=== PATIENT | female | born 1975 | race Caucasian/White ===

== ENCOUNTER 2016-07-06 13:02 | Emergency (ER) | payer SELFPAY ==
[~2016-07-06] VITALS: Ht 157.5 cm; Wt 100.0 kg
[~2016-07-06 13:02] MED LIST: CHLO.12%30 SSP; CLIN150 PO; DIFL150T PO; FLUT1SPR9 EACH NARE; ULTR50TA PO
[2016-07-06 13:04] VITALS: BP 189/99; PULSE 106; RESP 14; TEMP 99.1; O2SAT 95
[2016-07-06 13:28] VITALS: BP 170/82
[2016-07-06] MEDS ORDERED: PERI0.126 SWISH-SPIT (14:42)
[2016-07-06] MEDS ORDERED: MAGICADU2 SWISH-SPIT (14:42)
[2016-07-06] MEDS ORDERED: AMOX500C PO (14:42)
--- NOTE | 2016-07-06 14:42 | PD ---
HPI Chief Complaint: Oral / Dental Pain or Problem Time Seen by Provider: 14:40 Travel History International Travel<30 days: No Contact w/Intl Traveler<30days: No Traveled to known affect area: No History of Present Illness HPI 41-year-old female presents to the emergency department with complaint of left lower dental pain that has been worsening over the past few days. Denies facial erythema or edema. Denies fever, chills, nausea, vomiting. Has been taking ibuprofen with good relief of pain. Pain is aggravated with eating and drinking. Allergies to aspirin, Demerol, Motrin. Denies significant past medical history. No other modifying factors or associated signs and symptoms. PFSH Past Medical History Cardiovascular Problems: Yes (HTN) Reproductive: Yes (sp ovarian cyst) Influenza Vaccination: No ?: Unknown Social History Alcohol Use: Yes (OCC) Tobacco Use: Yes (1 PPD) Substance Use: No Allergies-Medications (Allergen,Severity, Reaction): Coded Allergies: Demerol (Verified Allergy, Severe, 07/06/16) Motrin (Verified Allergy, Severe, 07/06/16) Aspirin (Verified Allergy, Unknown, MOTHER SAID, 07/06/16) Reported Meds & Prescriptions Reported Meds & Active Scripts Active Magic Mouthwash Adult Liq (Multi-Ingredient Mouthwash/Gargle) 120 Ml Susp 5 Ml SWISH-SPIT Q3HR PRN Each 5mL contains: Nystatin 200,000units, Diphenhydramine 4.25mg, Viscous Lidocaine 10mg, Clifford syrup 0.8 mL Peridex Liq (Chlorhexidine Gluconate (Mouth) Liq) 0.12% Soln 15 Ml SWISH-SPIT BID 10 Days Amoxicillin 500 Mg Cap 500 Mg PO BID 10 Days Flonase Allergy Relief Ch (Fluticasone Propionate (Nasal)) 50 Mcg/Act Spr 1 [place] EACH NARE DAILY Ultram (Tramadol HCl) 50 Mg Tab 1-2 Tabs PO Q6 PRN Peridex Oral R0.12 % 0.12 % Shoshana 15 Ml SSP BID 10 Days Diflucan 150 mg (Fluconazole) 150 Mg Tab 150 Mg PO DIRECTED Cleocin (Clindamycin HCl) 150 Mg Cap 2 Tab PO QID Review of Systems Except as stated in HPI: all other systems reviewed are Neg Physical Exam Narrative GENERAL: Well-nourished, well-developed patient, in no acute distress; afebrile , nontoxic-appearing SKIN: Warm and dry. HEAD: Atraumatic. Normocephalic. No facial edema, erythema, tenderness on palpation. No lymphadenopathy. EYES: Pupils equal and round. No scleral icterus. No injection or drainage. ENT: Mucosa pink and moist. Airway patent. MOUTH: Mucous membranes moist, no lesions, tongue and gums appear normal. Left lower second molar with large dental cavity and tenderness on palpation slightly concerning gingiva is without erythema, edema, drainage; no obvious abscess noted. NECK: Trachea midline. No lymphadenopathy. CARDIOVASCULAR: Regular rate. RESPIRATORY: No accessory muscle use. GASTROINTESTINAL: Rounded. MUSCULOSKELETAL: No obvious deformities. No clubbing. No cyanosis. No edema. NEUROLOGICAL: Awake and alert. Oriented 3. No obvious cranial nerve deficits. Motor grossly within normal limits. Normal speech. PSYCHIATRIC: Appropriate mood and affect; insight and judgment normal. Data Data Last Documented VS Vital Signs Date Time Temp Pulse Resp B/P Pulse Ox O2 Delivery O2 Flow Rate FiO2 07/06/16 14:35 89 18 07/06/16 13:28 170/82 07/06/16 13:04 99.1 95 Room Air MDM Medical Decision Making Medical Screen Exam Complete: Yes Emergency Medical Condition: Yes Medical Record Reviewed: Yes Differential Diagnosis Dental abscess, dental caries, gingivitis, dentalgia Narrative Course 41-year-old female physical exam consistent with left lower second molar dentalgia. No facial edema or erythema. Patient is afebrile and nontoxic- appearing. Denies fever, chills, nausea, vomiting at home. Emergency dental information sheet provided. Amoxicillin, Magic mouthwash, Peridex mouth rinse prescribed for home. Inserted patient to follow up with dentist and she verbalized understanding and agreement. Patient is medically cleared and stable for discharge. Discussed reasons to return to the emergency department. Instructed patient to follow up with primary care provider. Patient agrees with treatment plan. The patients vital signs are stable and the patient is stable for outpatient follow-up and treatment. Patient discharged home, stable and in no acute distress. Diagnosis Primary Impression: Dentalgia Referrals: Dentist Primary Care Physician Patient Instructions: Dental Abscess (ED), Dental Caries (ED), General Instructions, Toothache (ED) Departure Forms: Tests/Procedures, Work Release Enter return to work date: Jul 07, 2016 Additional Instructions: Complete full course of antibiotics Ibuprofen as directed and as needed to reduce pain and inflammation Use Magic mouthwash rinse as directed and as needed to decrease pain Use Peridex as directed for oral hygiene Warm compresses to the affected area Follow-up with dentist Follow-up with primary care provider Return to emergency department immediately with worsening of symptoms Med/Other Pt SpecificInfo: Prescription(s) given Scripts Oapxhpaa-Bbzdtnfpadwufha-Mvhfqlrot Liq (Magic Mouthwash Adult Liq)120 Ml Susp5 Ml SWISH-SPIT Q3HR PRN (PAIN SCALE 1 TO 10) #120 ML Ref 0 Each 5mL contains: Nystatin 200,000units, Diphenhydramine 4.25mg, Viscous Lidocaine 10mg, Clifford syrup 0.8 mL Prov:Maryellen Hernandez 07/06/16 Chlorhexidine Gluconate (Mouth) Liq (Peridex Liq)0.12% Soln15 Ml SWISH-SPIT BID 10 Days Ref 0 Prov:Maryellen Hernandez 07/06/16 Amoxicillin 500 Mg [id number] Mg PO BID 10 Days Ref 0 Prov:Maryellen Hernandez 07/06/16 Disposition: 01 DISCHARGE HOME Condition: Stable Maryellen Hernandez Jul 06, 2016 14:42
== END 2016-07-06 14:53 | disposition home or self-care (01) ==
LOC: NEPB 13:02
DX: K08.89 Other specified disorders of teeth and supporting structures (principal); I10 Essential (primary) hypertension; F17.210 Nicotine dependence, cigarettes, uncomplicated
CPT/HCPCS: 99282

== ENCOUNTER 2017-05-03 11:33 | Emergency (ER) | payer SELFPAY ==
[~2017-05-03 11:33] MED LIST changes: +AMOX500C PO; +MAGICADU2 SWISH-SPIT; +PERI0.126 SWISH-SPIT
[2017-05-03 11:35] VITALS: BP 180/98; PULSE 110; RESP 17; TEMP 99.1; O2SAT 97
[2017-05-03] MEDS ORDERED: ACETAMINOPHEN 500 MG CPLT PO ONE (11:45)
--- NOTE | 2017-05-03 11:46 | PD ---
HPI Chief Complaint: Cold / Flu Symptoms Time Seen by Provider: 11:44 Travel History International Travel<30 days: No Contact w/Intl Traveler<30days: No Traveled to known affect area: No History of Present Illness HPI 41 YO F presents to the ED for evaluation of a 5 day history of clear rhinorrhea , sore throat, cough productive of thick yellow mucus, chills. Gradual onset. 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 She endorses mild nausea. She denies ear pain, sinus congestion, chest pain, palpitations. She did not receive this years flu shot. She is a current smoker. No treatment attempted at home. PFSH Past Medical History Cardiovascular Problems: Yes (HTN) Reproductive: Yes (sp ovarian cyst) LMP: 04/06/17 Social History Alcohol Use: Yes (OCC) Tobacco Use: Yes (1 PPD) Substance Use: No Allergies-Medications (Allergen,Severity, Reaction): Coded Allergies: ibuprofen (Unverified Allergy, Severe, 01/04/17) meperidine (Unverified Allergy, Severe, 01/04/17) aspirin (Unverified Allergy, Unknown, MOTHER SAID, 01/04/17) Reported Meds & Prescriptions Reported Meds & Active Scripts Active Tessalon Perles (Benzonatate) 100 Mg Cap 200 Mg PO TID PRN Azithromycin 250 Mg Tab 250 Mg PO DIRECTED Take 2 tabs (500 mg) on day 1 then 1 tab daily x 4 days. Prednisone 20 Mg Tab 20 Mg PO DAILY 5 Days Ventolin Hfa 18 GM Inh (Albuterol Sulfate) 90 Mcg/Act Aer 2 Puff INH Q4-6H PRN Magic Mouthwash Adult Liq (Multi-Ingredient Mouthwash/Gargle) 120 Ml Susp 5 Ml SWISH-SPIT Q3HR PRN Each 5mL contains: Nystatin 200,000units, Diphenhydramine 4.25mg, Viscous Lidocaine 10mg, Clifford syrup 0.8 mL Peridex Liq (Chlorhexidine Gluconate (Mouth) Liq) 0.12% Soln 15 Ml SWISH-SPIT BID 10 Days Amoxicillin 500 Mg Cap 500 Mg PO BID 10 Days Flonase Allergy Relief Ch (Fluticasone Propionate (Nasal)) 50 Mcg/Act Spr 1 [place] EACH NARE DAILY Ultram (Tramadol HCl) 50 Mg Tab 1-2 Tabs PO Q6 PRN Peridex Oral Rinse (Chlorhexidine Gluconate) 0.12 % [place]oshana 15 Ml SSP BID 10 Days Diflucan 150 mg (Fluconazole) 150 Mg Tab 150 Mg PO DIRECTED Cleocin (Clindamycin HCl) 150 Mg Cap 2 Tab PO QID Review of Systems Except as stated in HPI: all other systems reviewed are Neg Physical Exam Narrative GENERAL: Well-nourished, well-developed white female in no acute distress. SKIN: Focused skin assessment warm/dry. HEAD: Normocephalic. EYES: No scleral icterus. No injection or drainage. ENT: Pearly anderson tympanic membranes bilaterally, oropharynx with mild posterior erythema. No edema. No cobblestoning. Airway patent. Uvula midline. NECK: Supple, trachea midline. No JVD. Mild anterior cervical lymphadenopathy. CARDIOVASCULAR: Regular rate and rhythm without murmurs, gallops, or rubs. RESPIRATORY: Breath sounds equal bilaterally, mild end expiratory wheezing in bilateral lung pa.. No accessory muscle use. GASTROINTESTINAL: Abdomen soft, non-tender, nondistended. MUSCULOSKELETAL: No cyanosis, or edema. BACK: Nontender without obvious deformity. No CVA tenderness. Data Data Last Documented VS Vital Signs Date Time Temp Pulse Resp B/P (MAP) Pulse Ox O2 Delivery O2 Flow Rate FiO2 05/03/17 13:03 05/03/17 11:35 99.1 110 17 97 Orders Orders Influenzae A/B Antigen (05/03/17 11:45) Acetaminophen (Tylenol) (05/03/17 11:45) Group A Rapid Strep Screen (05/03/17 11:52) Ondansetron Odt (Zofran Odt) (05/03/17 12:00) Chest, Pa & Lat (05/03/17 ) Strep Culture (Group A) (05/03/17 12:00) Ed Discharge Order (05/03/17 12:54) MDM Medical Decision Making Medical Screen Exam Complete: Yes Emergency Medical Condition: Yes Differential Diagnosis Viral syndrome versus influenza versus pharyngitis versus URI versus pneumonia versus other Narrative Course 41 YO F presents to the ED for evaluation of a 5 day history of clear rhinorrhea , sore throat, cough productive of thick yellow mucus, chills. Gradual onset. Patient endorses multiple sick contacts at work. She endorses mild nausea. She did not receive this years flu shot. She is a current smoker. Vitals reviewed. Physical exam reveals a nontoxic-appearing white female in no acute distress. ENT exam reveals mild posterior oropharyngeal erythema. There is mild, diffuse end expiratory wheezing in the lung pa bilaterally. Otherwise unremarkable. Patient was administered 500 mg Tylenol, Zofran ODT by mouth. Flu swab, strep swab negative. CXR without evidence of pneumonia. This is upper respiratory infection. Patient was provided prescriptions for azithromycin, prednisone, albuterol inhaler, Tessalon Perles. She is instructed to take the medications as prescribed, follow up with his primary care provider. We discussed reasons to return to the ED. She indicated understanding of the instructions. She is agreeable to care plan. She stable and discharged home. Diagnosis Primary Impression: Upper respiratory infection, acute Referrals: Primary Care Physician Patient Instructions: General Instructions, Upper Respiratory Infection (ED) Departure Forms: Tests/Procedures, Work Release Enter return to work date: May 05, 2017 Additional Instructions: Rest, hydrate. Take medications as prescribed. Throw away toothbrush at the end of this illness. Follow-up with the primary care provider. Return to the ED for any urgent or emergent medical condition. Scripts Benzonatate (Tessalon Perles) 100 Mg Cap 200 MG PO TID Y for COUGH, #15 CAP 0 Refills Prov: Ricardo Keller MD 05/03/17 Azithromycin (Azithromycin) 250 Mg Tab 250 MG PO DIRECTED for Infection, #6 TAB 0 Refills Take 2 tabs (500 mg) on day 1 then 1 tab daily x 4 days. Prov: Ricardo Keller MD 05/03/17 Prednisone (Prednisone) 20 Mg Tab 20 MG PO DAILY for 5 Days, #5 TAB 0 Refills Prov: Ricardo Keller MD 05/03/17 Albuterol 18 GM Inh (Ventolin Hfa 18 GM Inh) 90 Mcg/Act Aer 2 PUFF INH Q4-6H Y for SHORTNESS OF BREATH, #1 INHALER 0 Refills Prov: Ricardo Keller MD 05/03/17 Disposition: 01 DISCHARGE HOME Condition: Stable Ashley Gr May 03, 2017 11:46
[2017-05-03] MEDS ORDERED: ONDANSETRON ODT 4 MG TAB PO ONE (12:00)
[2017-05-03] MEDS ORDERED: AZIT250T3 PO (12:12)
[2017-05-03] MEDS ORDERED: BENZ100 PO (12:12)
[2017-05-03] MEDS ORDERED: PRED20 PO (12:12)
[2017-05-03] MEDS ORDERED: VENTAER INH (12:12)
--- NOTE | 2017-05-03 13:00 | RADRPT ---
EXAM DATE/TIME: 05/03/2017 12:34 [facility] COMPARISON: No previous studies available for comparison. INDICATIONS : Cough and congestion. MEDICAL HISTORY : None. SURGICAL HISTORY : None. ENCOUNTER: Initial ACUITY: 3 days PAIN SCORE: 4/10 LOCATION: Bilateral chest FINDINGS: PA and lateral views of the chest demonstrate the lungs to be symmetrically aerated without evidence of mass, infiltrate or effusion. The cardiomediastinal contours are unremarkable. Osseous structure s are intact. CONCLUSION: No acute disease. Tone Prado MD on May 03, 2017 at 12:58 Board Certified Radiologist. This report was verified electronically.
== END 2017-05-03 13:04 | disposition home or self-care (01) ==
LOC: NEPK 11:33
DX: J06.9 Acute upper respiratory infection, unspecified (principal); R11.0 Nausea; F17.200 Nicotine dependence, unspecified, uncomplicated; I10 Essential (primary) hypertension; Z88.6 Allergy status to analgesic agent; Z88.8 Allergy status to other drugs, medicaments and biological substances; Z79.899 Other long term (current) drug therapy
CPT/HCPCS: 71020; 87081; 87804; 87880; 99285

== ENCOUNTER 2017-10-31 10:11 | Emergency (ER) | payer SELFPAY ==
[~2017-10-31] VITALS: Ht 162.6 cm; Wt 100.0 kg
[~2017-10-31 10:11] MED LIST changes: +AZIT250T3 PO; +BENZ100 PO; +PRED20 PO; +VENTAER INH
[2017-10-31 10:15] VITALS: BP 143/73; PULSE 89; RESP 16; TEMP 97.8; O2SAT 94
[2017-10-31] MEDS ORDERED: AMOX875T PO (11:50)
[2017-10-31] MEDS ORDERED: PRED20 PO (11:50)
[2017-10-31] MEDS ORDERED: ALBUAER3 INH (11:50)
[2017-10-31] MEDS ORDERED: BENZ100 PO (11:50)
--- NOTE | 2017-10-31 11:55 | PD ---
HPI Chief Complaint: Cold / Flu Symptoms Time Seen by Provider: 11:28 Travel History International Travel<30 days: No Contact w/Intl Traveler<30days: No Traveled to known affect area: No History of Present Illness HPI 42-year-old female that presents to the ED for evaluation of cold-like symptoms. Patient reports cold-like symptoms for the past 5 days. Per patient is not getting better. Per patient she got concerned because she has been coughing a lot and she started a new job today and she cannot be sick when working. She called in sick today because she was concerned she was noted to get better. She is a smoker. She has been given an inhaler before but not diagnosed with COPD. She states that she does feel sore throat and congestion with cough that keeps her up at night. Denies any chest pain. No shortness of breath. States having a lot of congestion of her nose and throat. Pain currently is 3 out of 10. States having some chills and sweats. No sick contacts. No recent travel. Has been taking jyeq-gms-tcqyory remedies with minimal relief. PFSH Past Medical History Cardiovascular Problems: Yes (HTN) Reproductive: Yes (sp ovarian cyst) Social History Alcohol Use: Yes (OCC) Tobacco Use: Yes (1 PPD) Substance Use: No Allergies-Medications (Allergen,Severity, Reaction): Coded Allergies: ibuprofen (Unverified Allergy, Severe, 01/04/17) meperidine (Unverified Allergy, Severe, 01/04/17) aspirin (Unverified Allergy, Unknown, MOTHER SAID, 01/04/17) Reported Meds & Prescriptions Reported Meds & Active Scripts Active Tessalon Perles (Benzonatate) 100 Mg Cap 100 Mg PO TID PRN Prednisone 20 Mg Tab 20 Mg PO BID 5 Days Amoxicillin 875 Mg Tab 875 Mg PO BID 10 Days Proair Hfa 8.5 GM Inh (Albuterol Sulfate) 90 Mcg/Act Aer 2 Puff INH Q4-6H PRN 108 mcg/actuation Tessalon Perles (Benzonatate) 100 Mg Cap 200 Mg PO TID PRN Azithromycin 250 Mg Tab 250 Mg PO DIRECTED Take 2 tabs (500 mg) on day 1 then 1 tab daily x 4 days. Prednisone 20 Mg Tab 20 Mg PO DAILY 5 Days Ventolin Hfa 18 GM Inh (Albuterol Sulfate) 90 Mcg/Act Aer 2 Puff INH Q4-6H PRN Magic Mouthwash Adult Liq (Multi-Ingredient Mouthwash/Gargle) 120 Ml Susp 5 Ml SWISH-SPIT Q3HR PRN Each 5mL contains: Nystatin 200,000units, Diphenhydramine 4.25mg, Viscous Lidocaine 10mg, Clifford syrup 0.8 mL Peridex Liq (Chlorhexidine Gluconate (Mouth) Liq) 0.12% Soln 15 Ml SWISH-SPIT BID 10 Days Amoxicillin 500 Mg Cap 500 Mg PO BID 10 Days Flonase Allergy Relief Ch (Fluticasone Propionate (Nasal)) 50 Mcg/Act Spr 1 [place] EACH NARE DAILY Ultram (Tramadol HCl) 50 Mg Tab 1-2 Tabs PO Q6 PRN Peridex Oral Rinse (Chlorhexidine Gluconate) 0.12 % [place] 15 Ml SSP BID 10 Days Diflucan 150 mg (Fluconazole) 150 Mg Tab 150 Mg PO DIRECTED Cleocin (Clindamycin HCl) 150 Mg Cap 2 Tab PO QID Review of Systems Except as stated in HPI: all other systems reviewed are Neg Physical Exam Narrative GENERAL: Well-nourished, well-developed patient in no apparent distress. SKIN: Warm and dry. HEAD: Atraumatic. Normocephalic. EYES: Pupils equal and round reactive to light and accommodation. No scleral icterus. No injection or drainage. ENT: No nasal bleeding or discharge. Mucous membranes pink and moist. TMs are clear with no sign of infection or perforation. No mastoid tenderness. Ear canals are intact bilaterally. No lymphadenopathy. Nostril mucosa is red and moist with clear mucus noted. No sinus tenderness to palpation noted. Tonsils are not enlarged or swollen. No ulvua Deviation. Tongue is midline. NECK: Trachea midline. No JVD. No meningeal signs noted CARDIOVASCULAR: Regular rate and rhythm. RESPIRATORY: No accessory muscle use. Clear to auscultation. Breath sounds equal bilaterally. GASTROINTESTINAL: Abdomen soft, non-tender, nondistended. Hepatic and splenic margins not palpable. MUSCULOSKELETAL: Extremities without clubbing, cyanosis, or edema. No obvious deformities. Full range of motion of the upper and lower extremities bilaterally. 2+ pulses bilaterally. NEUROLOGICAL: Awake and alert. No obvious cranial nerve deficits. Motor grossly within normal limits. Five out of 5 muscle strength in the arms and legs. Normal speech. PSYCHIATRIC: Appropriate mood and affect; insight and judgment normal. Data Data Last Documented VS Vital Signs Date Time Temp Pulse Resp B/P (MAP) Pulse Ox O2 Delivery O2 Flow Rate FiO2 10/31/17 10:15 97.8 89 16 143/73 (96) 94 Orders Orders Ed Discharge Order (10/31/17 11:51) MDM Medical Decision Making Medical Screen Exam Complete: Yes Emergency Medical Condition: Yes Medical Record Reviewed: Yes Differential Diagnosis Bronchitis versus sinusitis versus strep throat versus pharyngitis Narrative Course 42-year-old male that presents to the ED for evaluation of cold-like symptoms. Patient was properly examined and was found to have signs and symptoms consistent appears to be bronchitis. Physical exam and vitals are reassuring. At this time I recommend treatment with antibiotics, inhaler, steroids and follow-up with PCP. Patient was given a note for work. Told to take over-the- counter remedies as needed. See ED if worsening symptoms. Drink plenty of fluids. Follow-up with PCP. Diagnosis Primary Impression: Bronchitis Patient Instructions: General Instructions Departure Forms: Tests/Procedures, Work Release Enter return to work date: Nov 03, 2017 Additional Instructions: Tylenol for pain and fever. You can use [id number] antihistamine as well as well as Mucinex as needed for runny nose and congestion. Cough drops for cough as needed. Drink plenty of fluids. Follow-up with PCP. See ED for worsening symptoms. Med/Other Pt SpecificInfo: Prescription(s) given Scripts Benzonatate (Tessalon Perles) 100 Mg Cap 100 MG PO TID Y for COUGH, #20 CAP 0 Refills Prov: Dawood Dunn MD 10/31/17 Prednisone (Prednisone) 20 Mg Tab 20 MG PO BID for 5 Days, #10 TAB 0 Refills Prov: Dawood Dunn MD 10/31/17 Amoxicillin (Amoxicillin) 875 Mg Tab 875 MG PO BID for Infection for 10 Days, #20 TAB 0 Refills Prov: Dawood Dunn MD 10/31/17 Albuterol 8.5 GM Inh (Proair Hfa 8.5 GM Inh) 90 Mcg/Act Aer 2 PUFF INH Q4-6H Y for SHORTNESS OF BREATH, #1 INHALER 0 Refills 108 mcg/actuation Prov: Dawood Dunn MD 10/31/17 Disposition: 01 DISCHARGE HOME Condition: Stable Favian Haile Oct 31, 2017 11:55
== END 2017-10-31 12:16 | disposition home or self-care (01) ==
LOC: NEPK 10:11
DX: J40 Bronchitis, not specified as acute or chronic (principal); F17.210 Nicotine dependence, cigarettes, uncomplicated
CPT/HCPCS: 99283

== ENCOUNTER 2018-02-08 08:49 | Inpatient (IN) ==
[2018-02-08] MEDS ORDERED: Azithromycin Inj 500 MG in Sodium Chlor 0.9% Inj 250 ML IV.SIG STA (09:06)
[2018-02-08] MEDS ORDERED: Acetaminophen 325 MG Tablet PO ONE (09:06)
[2018-02-08 09:15] LABS: ABG Base Excess 6.8 mmol/L (-2-2); ABG PCO2 61 mmHg (38-42); ABG PO2 39 mmHg (61-120)
[2018-02-08] MEDS ORDERED: Sod Chloride 0.9% Inj 1,000 ML IV.SIG SCH ×2 (09:15)
[2018-02-08] MEDS ORDERED: Sod Chloride 0.9% Inj 700 ML IV.SIG SCH (09:15)
[2018-02-08 09:41] LABS: Baso % (Auto) 0.3 % (0.0-2.0); Hematocrit 43.4 % (35.0-46.0); Hemoglobin 14.7 gm/dL (11.6-15.3); Lymph # (Auto) 1.6 th/mm3 (1.0-4.8); Lymph % (Auto) 9.5 % (9.0-44.0); Mean Corpuscular HGB Conc 33.8 % (32.0-36.0); Mean Corpuscular Hemoglobin 30.6 pg (27.0-34.0); Mean Corpuscular Volume 90.7 fL (80.0-100.0); Mean Platelet Volume 8.6 fL (7.0-11.0); Mono # (Auto) 1.2 th/mm3 (0.0-0.9); Mono % (Auto) 7.6 % (0.0-8.0); Neut # (Auto) 13.5 th/mm3 (1.8-7.7); Neut % (Auto) 82.6 % (16.0-70.0); Platelet Count 316 th/mm3 (150-450); Red Blood Count 4.79 mil/mm3 (4.00-5.30); Red Cell Distribution Width 13.7 % (11.6-17.2); White Blood Count 16.4 th/mm3 (4.0-11.0)
--- NOTE | 2018-02-08 09:44 | XR ---
EXAM DATE: 02/08/2018 9:37 AM EDT AGE/SEX: 42 years / Female INDICATIONS: Short of breath with wheezing, congestion. CLINICAL DATA: This is the patient's initial encounter. Patient reports that signs and symptoms have been present for 3 days and indicates a pain score of 0/10. MEDICAL/SURGICAL HISTORY: Chronic obstructive pulmonary disease. . COMPARISON: [facility] – [place], CHEST PA & LAT, 05/03/2017. . FINDINGS: A single AP view of the chest demonstrates the lungs to be symmetrically aerated without evidence of mass, infiltrate or effusion. The cardiomediastinal contours are unremarkable. Osseous structures a re intact. CONCLUSION: Negative examination. Electronically signed by: Tone Prado MD 02/08/2018 9:42 AM EDT
[2018-02-08 09:55] LABS: Alanine Aminotransferase 48 U/L (10-53)
[2018-02-08 09:57] LABS: Activated Partial Thrombo Time 32.2 sec (24.3-30.1); Albumin 3.2 g/dL (3.4-5.0); Anion Gap 9 meq/L (5-15); Aspartate Aminotransferase 83 U/L (15-37); Blood Urea Nitrogen 11 mg/dL (7-18); Carbon Dioxide 30.4 meq/L (21.0-32.0); Chloride 92 meq/L (98-107); Glomerular Filtration Rate 78 mL/min (>89); Glucose,Random 123 mg/dL (74-106); INR 1.2 Ratio; Potassium 4.7 meq/L (3.5-5.1); Prothrombin Time 12.4 sec (9.8-11.6); Sodium 131 meq/L (136-145)
[2018-02-08 09:59] LABS: Alkaline Phosphatase 85 U/L (45-117); Creatine Kinase 121 U/L (26-192); Total Protein 8.5 g/dL (6.4-8.2); Troponin I 0.04 ng/mL (0.02-0.05)
--- NOTE | 2018-02-08 10:02 | ED ---
HPI General Chief Complaint: Respiratory Symptoms Stated Complaint: Poss Chest Congestion/Cold Symptoms Time Seen by Provider: 02/08/18 08:58 Source: patient and family Mode of arrival: ambulatory Limitations: no limitations History of Present Illness HPI Narrative: Is a 42-year-old female with past medical history significant for COPD presented with complaint of cough and fever and chills for the past 2 days. On arrival the patient's O2 saturation was 71% and she was in severe respiratory distress. She is a daily smoker but she has not smoked once lately. MD Complaint: fever and cough Onset (ago): day(s) (2) Duration: constant Severity scale (1-10): 10 Description of mucous: yellow Able to tolerate fluids by mouth: Yes Context: other (Homeless) Associated symptoms: fever, chills, rhinorrhea, nasal congestion, cough and nausea Treatments prior to arrival: none Related Data Home Medications Medication Instructions Recorded Confirmed No Known Home Medications 02/08/18 02/08/18 Allergies Allergy/AdvReac Type Severity Reaction Status Date / Time ibuprofen Allergy Severe Unverified 10/31/17 12:14 meperidine Allergy Severe Unverified 10/31/17 12:14 aspirin Allergy Unknown MOTHER SAID Unverified 10/31/17 12:14 Review of Systems ROS: all other systems reviewed are negative [facility] Medical History Medical History COPD (chronic obstructive pulmonary disease) (Acute) Pneumonia (Acute) Surgical History Surgical History History of appendectomy (Acute) Social History Social History Substance History: Active Abuse Smoking Status: Current every day smoker Tobacco Type: Cigarettes How Often Do You Have a Drink Containing Alcohol: 2 to 4 times a month Recent Travel in [facility] within the Last 8 Weeks: No Recent Out of Country Travel within the Last 8 Weeks: No Substance Abuse Detail Alcohol: Substance Use Status: Active Immunization History Tetanus Immunization: Unsure Hx Influenza Vaccine This Season: No Exam Narrative Exam Narrative: GENERAL: Alert in distress. SKIN: Focused skin assessment warm/dry. HEAD: Atraumatic. Normocephalic. EYES: Pupils equal and round. No scleral icterus. No injection or drainage. ENT: No nasal bleeding or discharge. Mucous membranes pink and moist. NECK: Trachea midline. No JVD. CARDIOVASCULAR: Tachycardia. No murmur appreciated. RESPIRATORY: Tachypneic with O2 saturation in the 70s using accessory muscles poor airflow diffuse inspiratory expiratory wheezes. Respiratory distress GASTROINTESTINAL: Abdomen soft, non-tender, nondistended. Hepatic and splenic margins not palpable. MUSCULOSKELETAL: No obvious deformities. No clubbing. No cyanosis. No edema. NEUROLOGICAL: Awake and alert. No obvious cranial nerve deficits. Motor grossly within normal limits. Normal speech. PSYCHIATRIC: Appropriate mood and affect; insight and judgment normal. Course Hospital Course: Patient in respiratory distress on arrival was placed on BiPAP with market improvement severe hypoxemia on ABGs. Patient appears to have pneumonia on imaging. Due to severe hypoxemia order CT Kat to rule out pulmonary embolism. CT was negative but revealed possible infiltrates. Reevaluation(s) Reevaluation #1: Patient is improving on BiPAP O2 saturations 100%. He was given Tylenol for her fever. Time: 10:30 Initial Documented Vital Signs Temperature 100.4 F H 02/08/18 08:52 Pulse Rate 118 H 02/08/18 08:52 Respiratory Rate 20 02/08/18 08:52 Blood Pressure 139/85 02/08/18 08:52 Pulse Oximetry 71 L 02/08/18 08:52 Last Documented Vital Signs Temperature 101.1 F H 02/08/18 08:56 Pulse Rate 92 H 02/08/18 15:39 Respiratory Rate 20 02/08/18 15:39 Blood Pressure 147/78 H 02/08/18 14:41 Pulse Oximetry 93 L 02/08/18 12:46 Critical Care Time Critical Care Time: Yes Total Critical Care Time: 45 Attestation: Aggregate critical care time was 45 minutes. Time to perform other separately billable procedures was not included in the critical care time. My time did not include minutes spent treating any other patients simultaneously or on activities that did not directly contribute to the patient's treatment. The services I provided to this patient were to treat and/or prevent clinically significant deterioration that could result in: I provided critical care services requiring my management, as noted below: Chart data review, documentation time, medication orders and management, vital sign assessments/reviewing monitor data, ordering and reviewing lab tests, ordering and interpreting/reviewing x-rays and diagnostic studies, care of the patient and discussion of the patient with the admitting physicians. Medical Decision Making MDM Narrative Medical Screen Exam Complete: Yes Emergency Medical Condition: Yes Lab Data Lab results reviewed: Yes I reviewed the patient's lab results. Result diagrams: 02/08/18 09:10 02/08/18 09:10 Lab Results 02/08/18 02/08/18 02/08/18 Range/Units 09:05 09:10 09:10 WBC 16.4 H (4.0-11.0) th/mm3 RBC 4.79 (4.00-5.30) mil/mm3 Hgb 14.7 (11.6-15.3) gm/dL Hct 43.4 (35.0-46.0) % MCV 90.7 (80.0-100.0) fL MCH 30.6 (27.0-34.0) pg MCHC 33.8 (32.0-36.0) % RDW 13.7 (11.6-17.2) % Plt Count 316 (150-450) th/mm3 MPV 8.6 (7.0-11.0) fL Neut % (Auto) 82.6 H (16.0-70.0) % Lymph % (Auto) 9.5 (9.0-44.0) % Sumner % (Auto) 7.6 (0.0-8.0) % Eos % (Auto) 0.0 (0.0-4.0) % Baso % (Auto) 0.3 (0.0-2.0) % Neut # (Auto) 13.5 H (1.8-7.7) th/mm3 Lymph # (Auto) 1.6 (1.0-4.8) th/mm3 Sumner # (Auto) 1.2 H (0.0-0.9) th/mm3 Eos # (Auto) 0.0 (0.0-0.4) th/mm3 Baso # (Auto) 0.0 (0.0-0.2) th/mm3 WBC Differential . Differential Comment Auto diff final PT 12.4 H (9.8-11.6) sec INR 1.2 Ratio APTT 32.2 H (24.3-30.1) sec Puncture Site Right radial Patient Temperature 98.6 O2 Saturation 66 L* (90-100) % ABG pH 7.34 L (7.380-7.420) ABG pCO2 61 H* (38-42) mmHg ABG pO2 39 L* (61-120) mmHg ABG HCO3 32 H (22-26) mmol/L ABG O2 Content 11.9 L (12.0-20.0) Vol % ABG Base Excess 6.8 H (-2-2) mmol/L ABG Methemoglobin 0.6 (0-2) % Miguel Test + Hemoglobin 12.8 (12.0-16.0) G/DL Carboxyhemoglobin 5.8 H* (0-4) % O2 Delivery Device Room air Vent Setting Inspired O2 21 % Critical Value Yes Sodium (136-145) meq/L Potassium (3.5-5.1) meq/L Chloride (98-107) meq/L Carbon Dioxide (21.0-32.0) meq/L Anion Gap (5-15) meq/L BUN (7-18) mg/dL Creatinine (0.50-1.00) mg/dL Estimated GFR (>89) mL/min Random Glucose (74-106) mg/dL Lactic Acid (0.4-2.0) mmol/L Calcium (8.5-10.1) mg/dL Total Bilirubin (0.2-1.0) mg/dL AST (15-37) U/L ALT (10-53) U/L Alkaline Phosphatase (45-117) U/L Total Creatine Kinase (26-192) U/L CK-MB (CK-2) (0.5-3.6) ng/mL Troponin I (0.02-0.05) ng/mL Total Protein (6.4-8.2) g/dL Albumin (3.4-5.0) g/dL 02/08/18 02/08/18 02/08/18 Range/Units 09:10 09:10 10:18 WBC (4.0-11.0) th/mm3 RBC (4.00-5.30) mil/mm3 Hgb (11.6-15.3) gm/dL Hct (35.0-46.0) % MCV (80.0-100.0) fL MCH (27.0-34.0) pg MCHC (32.0-36.0) % RDW (11.6-17.2) % Plt Count (150-450) th/mm3 MPV (7.0-11.0) fL Neut % (Auto) (16.0-70.0) % Lymph % (Auto) (9.0-44.0) % Sumner % (Auto) (0.0-8.0) % Eos % (Auto) (0.0-4.0) % Baso % (Auto) (0.0-2.0) % Neut # (Auto) (1.8-7.7) th/mm3 Lymph # (Auto) (1.0-4.8) th/mm3 Sumner # (Auto) (0.0-0.9) th/mm3 Eos # (Auto) (0.0-0.4) th/mm3 Baso # (Auto) (0.0-0.2) th/mm3 WBC Differential Differential Comment PT (9.8-11.6) sec INR Ratio APTT (24.3-30.1) sec Puncture Site Right radial Patient Temperature 98.6 O2 Saturation 92 (90-100) % ABG pH 7.30 L (7.380-7.420) ABG pCO2 63 H* (38-42) mmHg ABG pO2 92 (61-120) mmHg ABG HCO3 30 H (22-26) mmol/L ABG O2 Content 16.0 (12.0-20.0) Vol % ABG Base Excess 4.4 H (-2-2) mmol/L ABG Methemoglobin 0.5 (0-2) % Miguel Test + Hemoglobin 12.3 (12.0-16.0) G/DL Carboxyhemoglobin 5.0 H (0-4) % O2 Delivery Device Bipap Vent Setting [id number] Inspired O2 40 % Critical Value Yes Sodium 131 L (136-145) meq/L Potassium 4.7 (3.5-5.1) meq/L Chloride 92 L (98-107) meq/L Carbon Dioxide 30.4 (21.0-32.0) meq/L Anion Gap 9 (5-15) meq/L BUN 11 (7-18) mg/dL Creatinine 0.81 (0.50-1.00) mg/dL Estimated GFR 78 L (>89) mL/min Random Glucose 123 H (74-106) mg/dL Lactic Acid 1.8 (0.4-2.0) mmol/L Calcium 9.0 (8.5-10.1) mg/dL Total Bilirubin 0.4 (0.2-1.0) mg/dL AST 83 H (15-37) U/L ALT 48 (10-53) U/L Alkaline Phosphatase 85 (45-117) U/L Total Creatine Kinase 121 (26-192) U/L CK-MB (CK-2) 1.4 (0.5-3.6) ng/mL Troponin I 0.04 (0.02-0.05) ng/mL Total Protein 8.5 H (6.4-8.2) g/dL Albumin 3.2 L (3.4-5.0) g/dL Imaging Data Radiologist's impression: Chest X-Ray 02/08/18 09:06 CONCLUSION: Negative examination. Chest CTA 02/08/18 10:04 CONCLUSION: 1. No evidence of pulmonary embolism. 2. Mild increased reticulonodular initial infiltrates are noted bilaterally ( left slightly worse than right) consistent with possible viral pneumonitis. Clinical correlation is recommended. 3. Degenerative changes and scoliosis of the thoracic spine. ECG Data EKG Prior to Arrival: No Prior ECG tracings: available for review Interpretation: Sinus tachycardia 112 bpm IN interval 148 QTc 389. Normal axis. left atrial enlargement. Possible right ventricular conduction delay. Discharge Plan Discharge Disposition Patient Disposition: 30 Still Patient Discharge Condition Condition: Serious Discharge Details Diagnosis: Pneumonia, Hypoxemia Physicians Team ED Provider: Chuy Singh Primary Care Provider: Primary Care Ana Luisa Heath Attending Provider: Emmanuel Savage Other Providers: Jeffery Gil Discharge Interventions Interventions: ED Discharge Assessment Last Done: 02/08/18 18:13 Vital Signs Last Done: 02/08/18 14:41 Discharge Planning - Case Management Last Done: 02/08/18 17:32 Status ED Status: Admitted Patient
[2018-02-08 10:11] LABS: Creatine Kinase MB 1.4 ng/mL (0.5-3.6)
--- NOTE | 2018-02-08 11:31 | CT ---
EXAM DATE: 02/08/2018 11:23 AM EDT AGE/SEX: 42 years / Female INDICATIONS: Hypoxemia, fever, chills, nausea CLINICAL DATA: This is the patient's initial encounter. Patient reports that signs and symptoms have been present for 1 day and indicates a pain score of 10/10. MEDICAL/SURGICAL HISTORY: Chronic obstructive pulmonary disease. Appendectomy. RADIATION DOSE: 21.25 CTDI (mGy) COMPARISON: C, CHEST 1V SINGLE AP, 02/08/2018. . TECHNIQUE: Volumetric scanning was performed using a multi-row detector CT scanner during bolus infu danita of 60 ml Omnipaque 350 (iohexol) nonionic water-soluble contrast as a single exam dose. The juan diego a was post processed with a variety of visualization algorithms including full volume maximum intensi ty projection and sliding thin slab reformation. Using automated exposure control and adjustment of t he mA and/or kV according to patient size, radiation dose was kept as low as reasonably achievable to obtain optimal diagnostic quality images. DICOM format image data is available electronically for r eview and comparison. FINDINGS: Pulmonary Arteries: No filling defects are seen in the pulmonary arteries out to the subsegmental ve ssels. The left and right pulmonary arteries are normal in diameter. Lung: Mild increased reticulonodular initial infiltrates are noted bilaterally (left slightly worse than right) consistent with possible viral pneumonitis. Clinical correlation is recommended. No focal alveolar consolidation is noted. Effusion: None. Mediastinum: No evidence of mediastinal or hilar adenopathy. Other: The axilla is unremarkable. Degenerative changes and scoliosis of the thoracic spine are note d. CONCLUSION: 1. No evidence of pulmonary embolism. 2. Mild increased reticulonodular initial infiltrates are noted bilaterally (left slightly worse anderson n right) consistent with possible viral pneumonitis. Clinical correlation is recommended. 3. Degenerative changes and scoliosis of the thoracic spine. Electronically signed by: Tone Prado MD 02/08/2018 11:29 AM EDT
[2018-02-08] MEDS ORDERED: Bisacodyl 10 MG Supp RECTAL PRN (12:24)
[2018-02-08 12:42] LABS: ABG Base Excess 4.4 mmol/L (-2-2); ABG PCO2 63 mmHg (38-42); ABG PO2 92 mmHg (61-120)
[2018-02-08] MEDS: MethylPREDNISolone Sod Succinate Inj 40 MG/ML Vial IV.PUSH SCH ×2 (13:16→21:04)
--- NOTE | 2018-02-08 19:43 | P.HPIM ---
History of Present Illness Primary Care Physician: No Primary Care Physician History of Present Illness: 42-year-old female with a [id number] smoking history, as well as seasonal allergies who presents with a 2 day history of cough productive of white sputum , subjective fevers and chills, sinus congestion. She denies any chest pain or shortness of breath. Patient reports being evicted from her apartment 1 week ago, and thinks that environmental allergies are exacerbating her condition. Patient says her shortness of breath has improved with nebulizations in the ER. Inpatient Certification: I certify that the inpatient services were ordered in accordance with Medicare regulations governing the order. This includes certification that hospital inpatient services are reasonable and necessary and in the case of services not specified as inpatient-only under 42 CFR 419.22(n), that they are appropriately provided as inpatient services in accordance to with the 2-midnight benchmark under 43 CFR 412.3(e) Estimated Total Length of Stay (Days): 3 Plans for Post Hospital Care: Home Review of Systems All other systems reviewed negative except as stated in HPI [facility] - History History Provided By: Patient - Medical History Medical History: Medical History (Last Updated 02/08/18 @ 09:16 by Anastacia Miguel) COPD (chronic obstructive pulmonary disease) Pneumonia - Surgical History Surgical History: Surgical History (Last Updated 02/08/18 @ 09:16 by Anastacia Miguel) History of appendectomy - Family History Family History: Family History (Last Updated 02/08/18 @ 19:41 by Emmanuel Savage MD) Father Alcoholism Mother Cancer - Tobacco History Tobacco Use In Past 30 Days: Yes Smoking Status: Current every day smoker Tobacco Type: Cigarettes - Alcohol History How Often Do You Have a Drink Containing Alcohol: 2 to 4 times a month - Substance Use History Substance History: Active Abuse - Substance Use Type Alcohol Status: Active - Travel History Recent Travel in the [place] Within the Last 8 Weeks: No Recent Travel Out of the Country Within the Last 8 Weeks: No - Immunization History Tetanus Immunization: Unsure Hx Influenza Vaccine This Season: No Medications and Allergies Active Medications: Active Medications Al Hydroxide/Mg Hydroxide (Milk Of Carolyn Liq) 30 ml PO Q12H PRN PRN Reason: Mild Constipation Albuterol (Duoneb Neb (Yessica)) 1 ampul NEB Q6HR NEB YESSICA Last Admin: 02/08/18 15:39 Dose: 1 ampul Azithromycin (Zithromax) 500 mg PO DAILY [facility] Stop: 02/10/18 08:59 Azithromycin (Zithromax) 250 mg PO DAILY [facility] Stop: 02/14/18 08:59 Bisacodyl (Dulcolax Supp) 10 mg RECTAL DAILY PRN PRN Reason: SEVERE CONSITIPATION Sodium Chloride (Ns Inj) 1,000 mls @ 0 mls/hr IV.SIG .Q0M YESSICA Last Infusion: 02/08/18 12:35 Dose: Infused Sodium Chloride (Ns Inj) 1,000 mls @ 0 mls/hr IV.SIG .Q0M YESSICA Last Infusion: 02/08/18 14:34 Dose: Infused Sodium Chloride (Ns Inj) 700 mls @ 0 mls/hr IV.SIG .Q0M YESSICA Last Infusion: 02/08/18 14:34 Dose: Infused Ceftriaxone Sodium 1,000 mg/ (Sodium Chloride) 100 mls @ 200 mls/hr IV.SIG Q24H YESSICA Lactulose (Lactulose Liq) 30 ml PO DAILY PRN PRN Reason: SEVERE CONSITIPATION Methylprednisolone Sodium Succinate (Solumedrol Inj) 60 mg IV.PUSH Q6H [facility] Last Admin: 02/08/18 13:16 Dose: 60 mg Senna/Docusate Sodium (Gaby-Colace) 1 tab PO BID YESSICA Sennosides (Senokot) 17.2 mg PO Q12H PRN PRN Reason: Moderate Constipation Sodium Chloride (Ns Flush) 2 ml IV.FLUSH BID YESSICA Sodium Chloride (Ns Flush) 2 ml IV.FLUSH UNSCH PRN PRN Reason: FLUSH AFTER USING IV ACCESS Allergies Allergy/AdvReac Type Severity Reaction Status Date / Time ibuprofen Allergy Severe Unverified 10/31/17 12:14 meperidine Allergy Severe Unverified 10/31/17 12:14 aspirin Allergy Unknown MOTHER SAID Unverified 10/31/17 12:14 Home Medications Medication Instructions Recorded Confirmed Type No Known Home Medications 02/08/18 02/08/18 History Exam Vital signs: Vital Signs 02/08/18 08:52 02/08/18 08:56 02/08/18 09:25 Temperature 100.4 F H 101.1 F H Pulse Rate 118 H Respiratory Rate 20 Blood Pressure 139/85 Pulse Oximetry 71 L 98 02/08/18 09:41 02/08/18 10:42 02/08/18 10:57 Temperature Pulse Rate 106 H 104 H 106 H Respiratory Rate 21 18 18 Blood Pressure Pulse Oximetry 02/08/18 12:03 02/08/18 12:24 02/08/18 12:46 Temperature Pulse Rate Respiratory Rate Blood Pressure Pulse Oximetry 95 92 L 93 L 02/08/18 12:47 02/08/18 14:41 02/08/18 15:39 Temperature Pulse Rate 91 H 92 H 92 H Respiratory Rate 20 20 20 Blood Pressure 139/66 147/78 H Pulse Oximetry 02/08/18 18:12 Temperature 98.6 F Pulse Rate 102 H Respiratory Rate 16 Blood Pressure 132/88 Pulse Oximetry Intake & Output 02/08/18 02/08/18 02/09/18 06:59 18:59 06:59 Intake Total 3050 / 3050 Balance 3050 / 3050 Weight 90.718 kg Intake: IV 3050 / 3050 Azithromycin Inj 500 MG In NS 250 / 250 Inj 250 ML @ 250 mls/hr IV.SIG STAT STA Rx#:[id number] NS Inj 700 ML @ Wide Open IV. 2700 / 2700 SIG .Q0M YESSICA Rx#:[id number] Rocephin Inj 2,000 MG In NS Inj 100 / 100 100 ML @ 200 mls/hr IV.SIG STAT STA Rx#:[id number] Narrative: GENERAL: patient sitting up in bed. Moderately short of breath. SKIN: Warm and dry. HEAD: Atraumatic. Normocephalic. EYES: Pupils equal and round. No scleral icterus. No injection or drainage. ENT: No nasal bleeding or discharge. Mucous membranes pink and moist. NECK: Trachea midline. No JVD. CARDIOVASCULAR: Regular rate and rhythm. RESPIRATORY: No accessory muscle use. wheezing and rhonchi bilaterally. GASTROINTESTINAL: Abdomen soft, non-tender, nondistended. Hepatic and splenic margins not palpable. MUSCULOSKELETAL: Extremities without clubbing, cyanosis, or edema. No obvious deformities. NEUROLOGICAL: Awake and alert. No obvious cranial nerve deficits. Motor grossly within normal limits. Five out of 5 muscle strength in the arms and legs. Normal speech. PSYCHIATRIC: Appropriate mood and affect; insight and judgment normal. Results - Labs CBC & Chem 7: 02/08/18 09:10 02/08/18 09:10 Labs: Short CBC 02/08/18 Range/Units 09:10 WBC 16.4 H (4.0-11.0) th/mm3 Hgb 14.7 (11.6-15.3) gm/dL Hct 43.4 (35.0-46.0) % Plt Count 316 (150-450) th/mm3 BMP 02/08/18 09:10 Sodium 131 L Potassium 4.7 Chloride 92 L Carbon Dioxide 30.4 BUN 11 Creatinine 0.81 Calcium 9.0 Cardiac Enzymes 02/08/18 Range/Units 09:10 Total Creatine Kinase 121 (26-192) U/L CK-MB (CK-2) 1.4 (0.5-3.6) ng/mL Troponin I 0.04 (0.02-0.05) ng/mL Liver Function 02/08/18 Range/Units 09:10 Total Bilirubin 0.4 (0.2-1.0) mg/dL AST 83 H (15-37) U/L ALT 48 (10-53) U/L Alkaline Phosphatase 85 (45-117) U/L Albumin 3.2 L (3.4-5.0) g/dL - Imaging Impressions Chest X-Ray 02/08/18 09:06 CONCLUSION: Negative examination. Chest CTA 02/08/18 10:04 CONCLUSION: 1. No evidence of pulmonary embolism. 2. Mild increased reticulonodular initial infiltrates are noted bilaterally ( left slightly worse than right) consistent with possible viral pneumonitis. Clinical correlation is recommended. 3. Degenerative changes and scoliosis of the thoracic spine. Caprini VTE Risk Assessment Caprini VTE Risk Assessment: No/Low Risk (score <= 1) Caprini Risk Assessment Model: Point Value = 1 Point Value = 2 Point Value = 3 Point Value = 5 Age 41-60 Minor surgery BMI > 25 kg/m2 Swollen legs Varicose veins or History of unexplained or recurrent spontaneous Oral contraceptives or hormone replacement Sepsis (< 1 month) Serious lung disease, including pneumonia (< 1 month) Abnormal pulmonary function Acute myocardial infarction Congestive heart failure (< 1 month) History of inflammatory bowel disease Medical patient at bed rest Age 61-74 Arthroscopic surgery Major open surgery (> 45 min) Laparoscopic surgery (> 45 min) Malignancy Confined to bed (> 72 hours) Immobilizing plaster cast Central venous access Age >= 75 History of VTE Family history of VTE Factor V Leiden Prothrombin [id number] Lupus anticoagulant Anticardiolipin antibodies Elevated serum homocysteine Heparin-induced thrombocytopenia Other congenital or acquired thrombophilia Stroke (< 1 month) Elective arthroplasty Hip, pelvis, or leg fracture Acute spinal cord injury (< 1 month) Prophylaxis Regimen: Total Risk Factor Score Risk Level Prophylaxis Regimen 0-1 Low Early ambulation 2 Moderate Order ONE of the following: *Sequential Compression Device (SCD) *Heparin 5000 units SQ BID 3-4 Higher Order ONE of the following medications: *Heparin 5000 units SQ TID *Enoxaparin/Lovenox 40 mg SQ daily (WT < 150 kg, CrCl > 30 mL/min) *Enoxaparin/Lovenox 30 mg SQ daily (WT < 150 kg, CrCl > 10-29 mL/min) *Enoxaparin/Lovenox 30 mg SQ BID (WT < 150 kg, CrCl > 30 mL/min) AND/OR *Sequential Compression Device (SCD) 5 or more Highest Order ONE of the following medications: *Heparin 5000 units SQ TID (Preferred with Epidurals) *Enoxaparin/Lovenox 40 mg SQ daily (WT < 150 kg, CrCl > 30 mL/min) *Enoxaparin/Lovenox 30 mg SQ daily (WT < 150 kg, CrCl > 10-29 mL/min) *Enoxaparin/Lovenox 30 mg SQ BID (WT < 150 kg, CrCl > 30 mL/min) AND *Sequential Compression Device (SCD) Assessment and Plan - Plan //Severe Sepsis on admission //Acute hypoxemic respiratory failure //Acute atypical pneumonia //Acute asthma exacerbation = Leukocytosis of 16, heart rate 102, hypoxia = CT pulmonary angiogram reviewed with absence of pulmonary embolism, however bilateral reticulonodular infiltrates. = ABG reviewed with PaO2 in the 60s on room air = Start patient on IV antibiotics, DuoNeb's, IV steroids. Consult pulmonology //Hyponatremia likely secondary to hypovolemia, dehydration. Sodium 1:30's We' ll start on IV fluids. //Elevated glucose. Glucose in the 120s on admission. Expect to increase with steroids. We'll check glucose after steroids. Will check A1c. //Chronic tobacco abuse. Cessation counseling provided. //Elevated AST of 83. Possibly secondary to alcohol. INR within normal limits. We will follow. Discussed Condition With: patient, nurse, ED physician
--- NOTE | 2018-02-08 20:12 | ECG ---
Date Performed: 02/08/2018 Time Performed: 09:11:27 PTAGE: 42 years EKG: SINUS TACHYCARDIA POSSIBLE LEFT ATRIAL ENLARGEMENT POSSIBLE RIGHT VENTRICULAR CONDUCTION DE LAY ABNORMAL RHYTHM ECG NO PREVIOUS TRACING DOCTOR: Radha Acosta Interpretating Date/Time 02/08/2018 20:12:17
--- NOTE | 2018-02-08 20:44 | MB ---
cc: Jeffery Gil MD DATE: 02/08/2018 REASON FOR CONSULTATION: Pneumonia. HISTORY OF PRESENT ILLNESS: The patient is a 42-year-old female with a 3-day history of fever, chills, cough. No expectoration. No hemoptysis. No previous TB or industrial exposure. She had previous history of pneumonia 2-3 years ago. The patient's chest x-ray was normal. CT angiogram was done without evidence of pulmonary embolism, increased interstitial infiltrates bilaterally more so on the left. I am asked to see the patient at this time for same. PAST MEDICAL HISTORY: Question of COPD, previous history of pneumonia, previous appendectomy. SOCIAL HISTORY: The patient is a current smoker. Alcohol socially. She does not use drugs. FAMILY HISTORY: Noncontributory. REVIEW OF SYSTEMS: A 12-point review of systems as per HPI and past history, otherwise negative. MEDICATIONS AT HOME: None. ALLERGIES: IBUPROFEN, MEPERIDINE, ASPIRIN. PHYSICAL EXAMINATION: GENERAL: The patient is alert. VITAL SIGNS: Temperature-max 100.5, pulse 100, respirations 20, blood pressure 130/80. HEENT: Unremarkable. Eyes without icterus. NECK: Without adenopathy, thyroid enlargement. Central trachea. CHEST: Few rhonchi bilaterally. CARDIAC: PMI not appreciated. S1, S2 audible. No murmur. No rub. ABDOMEN: Lax. Audible bowel sounds. PSYCHIATRIC: No clubbing, cyanosis, or edema. LABORATORY DATA: White count 16,000, hemoglobin 14, hematocrit 43. Sodium 131, potassium 4.7, BUN 11, creatinine 0.9. Chest x-ray, CT scan as above. IMPRESSION: 1. Asthmatic bronchitis. 2. Question of chronic obstructive pulmonary disease. 3. Tobacco abuse. PLAN: The patient to continue bronchodilator therapy, antibiotic therapy. Findings on CT scan are nonspecific, and we will follow the patient's course clinically. Her chest x-ray is without an acute infiltrate. Pulmonary function evaluation will be undertaken as well as arterial blood gas determination. Depending on the patient's response and clinical progress, we will proceed accordingly. I do thank you for asking me to participate in Mrs. Garcia's care. Jeffery Gil MD WWW/erwin , 06:34 PM , 06:44 PM
[2018-02-08] MEDS: Senna/Docusate Sodium 8.6/50 MG Tablet PO SCH (21:04)
[2018-02-09] MEDS: MethylPREDNISolone Sod Succinate Inj 40 MG/ML Vial IV.PUSH SCH ×4 (02:59→20:12)
[2018-02-09 06:56] LABS: Baso % (Auto) 0.1 % (0.0-2.0); Hematocrit 41.4 % (35.0-46.0); Hemoglobin 13.6 gm/dL (11.6-15.3); Lymph % (Auto) 8.4 % (9.0-44.0); Mean Corpuscular HGB Conc 32.7 % (32.0-36.0); Mean Corpuscular Hemoglobin 30.4 pg (27.0-34.0); Mean Corpuscular Volume 92.7 fL (80.0-100.0); Mean Platelet Volume 8.5 fL (7.0-11.0); Mono # (Auto) 0.8 th/mm3 (0.0-0.9); Mono % (Auto) 6.4 % (0.0-8.0); Neut # (Auto) 10.5 th/mm3 (1.8-7.7); Neut % (Auto) 85.1 % (16.0-70.0); Platelet Count 303 th/mm3 (150-450); Red Blood Count 4.47 mil/mm3 (4.00-5.30); Red Cell Distribution Width 13.3 % (11.6-17.2); White Blood Count 12.3 th/mm3 (4.0-11.0)
[2018-02-09 07:52] LABS: Albumin 3.1 g/dL (3.4-5.0); Anion Gap 5 meq/L (5-15); Aspartate Aminotransferase 27 U/L (15-37); Blood Urea Nitrogen 9 mg/dL (7-18); Calcium 8.7 mg/dL (8.5-10.1); Carbon Dioxide 31.1 meq/L (21.0-32.0); Chloride 99 meq/L (98-107); Glomerular Filtration Rate Greater Than 89 mL/min (>89); Glucose,Random 122 mg/dL (74-106); Potassium 4.8 meq/L (3.5-5.1); Sodium 135 meq/L (136-145)
[2018-02-09 07:54] LABS: Alanine Aminotransferase 41 U/L (10-53); Alkaline Phosphatase 79 U/L (45-117); Total Protein 7.6 g/dL (6.4-8.2)
[2018-02-09] MEDS: Senna/Docusate Sodium 8.6/50 MG Tablet PO SCH ×2 (08:24→20:13)
[2018-02-09] MEDS ORDERED: Azithromycin 250 MG Tablet PO SCH (09:00)
--- NOTE | 2018-02-09 11:11 | P.PNIM ---
Subjective Interval history: Patient is lying in bed comfortably, nasal cannula in place. Patient complains of a cough. She does not have any other complaints. Physical Exam Vital signs: Vital Signs 02/08/18 12:03 02/08/18 12:24 02/08/18 12:46 Temperature Pulse Rate Respiratory Rate Blood Pressure Pulse Oximetry 95 92 L 93 L 02/08/18 12:47 02/08/18 14:41 02/08/18 15:39 Temperature Pulse Rate 91 H 92 H 92 H Respiratory Rate 20 20 20 Blood Pressure 139/66 147/78 H Pulse Oximetry 02/08/18 18:12 02/08/18 18:15 02/08/18 20:00 Temperature 98.6 F 98.3 F 98.8 F Pulse Rate 102 H 88 80 Respiratory Rate 16 20 18 Blood Pressure 132/88 164/77 H 138/68 Pulse Oximetry 92 L 95 02/08/18 21:18 02/09/18 00:00 02/09/18 04:00 Temperature 98.1 F 97.7 F Pulse Rate 90 87 70 Respiratory Rate 20 18 18 Blood Pressure 128/72 143/83 H Pulse Oximetry 93 L 95 02/09/18 05:21 02/09/18 07:46 02/09/18 09:00 Temperature 96 F L Pulse Rate 91 H 82 98 H Respiratory Rate 20 16 Blood Pressure 159/75 H Pulse Oximetry 96 02/09/18 09:03 Temperature Pulse Rate 103 H Respiratory Rate 18 Blood Pressure Pulse Oximetry 97 Intake & Output 02/08/18 02/09/18 02/09/18 18:59 06:59 18:59 Intake Total 3050 / 3050 720 / 720 Output Total 600 / 600 1000 / 1000 Balance 3050 / 3050 120 / 120 -1000 / -1000 Weight 93.2 kg 93.4 kg Intake: IV 3050 / 3050 Azithromycin Inj 500 MG In NS 250 / 250 Inj 250 ML @ 250 mls/hr IV.SIG [facility] Rx#:[id number] NS Inj 700 ML @ Wide Open IV. 2700 / 2700 SIG .Q0M [facility] Rx#:[id number] Rocephin Inj 2,000 MG In NS Inj 100 / 100 100 ML @ 200 mls/hr IV.SIG [facility] Rx#:[id number] Oral 720 / 720 Output: Urine 600 / 600 1000 / 1000 Other: # Bowel Movements 0 Weight On Admission 93.2 kg Narrative: General patient in no acute distress HEENT extraocular movements are intact, the patient's cheeks appeared flushed, she states that prior to me walking into the room she was coughing which is likely why the patient's face appears flushed. Cardiovascular S1-S2 audible, RRR, no murmurs rubs or gallops Respiratory bilateral wheezing on auscultation. Abdomen soft, nontender, nondistended, normal bowel sounds Extremities no edema 2+ distal pulses in bilateral upper and lower extremities Neuro cranial nerves II through XII intact Results - Labs CBC & Chem 7: 02/09/18 04:50 02/09/18 04:50 Laboratory Results - last 24 hr 02/08/18 02/08/18 02/09/18 10:18 21:18 04:50 WBC 12.3 H RBC 4.47 Hgb 13.6 Hct 41.4 MCV 92.7 MCH 30.4 MCHC 32.7 RDW 13.3 Plt Count 303 MPV 8.5 Neut % (Auto) 85.1 H Lymph % (Auto) 8.4 L Island % (Auto) 6.4 Eos % (Auto) 0.0 Baso % (Auto) 0.1 Neut # (Auto) 10.5 H Lymph # (Auto) 1.0 Island # (Auto) 0.8 Eos # (Auto) 0.0 Baso # (Auto) 0.0 WBC Differential . Differential Comment Auto diff final Puncture Site Right radial Patient Temperature 98.6 O2 Saturation 92 ABG pH 7.30 L ABG pCO2 63 H* ABG pO2 92 ABG HCO3 30 H ABG O2 Content 16.0 ABG Base Excess 4.4 H ABG Methemoglobin 0.5 Miguel Test + Hemoglobin 12.3 Carboxyhemoglobin 5.0 H O2 Delivery Device Bipap Vent Setting [id number] Inspired O2 40 Critical Value Yes Sodium Potassium Chloride Carbon Dioxide Anion Gap BUN Creatinine Estimated GFR Random Glucose 145 H Calcium Total Bilirubin AST ALT Alkaline Phosphatase Total Protein Albumin 02/09/18 04:50 WBC RBC Hgb Hct MCV MCH MCHC RDW Plt Count MPV Neut % (Auto) Lymph % (Auto) Island % (Auto) Eos % (Auto) Baso % (Auto) Neut # (Auto) Lymph # (Auto) Island # (Auto) Eos # (Auto) Baso # (Auto) WBC Differential Differential Comment Puncture Site Patient Temperature O2 Saturation ABG pH ABG pCO2 ABG pO2 ABG HCO3 ABG O2 Content ABG Base Excess ABG Methemoglobin Miguel Test Hemoglobin Carboxyhemoglobin O2 Delivery Device Vent Setting Inspired O2 Critical Value Sodium 135 L Potassium 4.8 Chloride 99 Carbon Dioxide 31.1 Anion Gap 5 BUN 9 Creatinine 0.57 Estimated GFR Greater than 89 Random Glucose 122 H Calcium 8.7 Total Bilirubin 0.3 AST 27 ALT 41 Alkaline Phosphatase 79 Total Protein 7.6 D Albumin 3.1 L Microbiology 02/08/18 09:10 Blood - Peripheral Aerobic Blood Culture - Preliminary No growth in 1 day 02/08/18 09:10 Blood - Peripheral Anaerobic Blood Culture - Preliminary No growth in 1 day 02/08/18 09:25 Blood - Peripheral Aerobic Blood Culture - Preliminary No growth in 1 day 02/08/18 09:25 Blood - Peripheral Anaerobic Blood Culture - Preliminary No growth in 1 day 02/08/18 10:00 Sputum - Expectorated Sputum Gram Stain - Final 02/08/18 10:00 Sputum - Expectorated Sputum Sputum Culture - Preliminary Heavy growth normal respiratory kieran at 24 hours 02/08/18 09:06 Urine - Clean Catch Urine Streptococcus pneumoniae Antigen ( M - Final Presumptive negative for streptococcus pneumoniae antigen, suggesting no current or recent infection. Infection due to Streptococcus pneumoniae cannot be ruled out since the antigen present in the sample may be below the detection limit of the test. 02/08/18 11:36 Urine - Clean Catch Urine Legionella Antigen - Final Presumptive negative for Legionella pneumophila serogroup 1 antigen in urine, suggesting no recent or recurrent infection. Infection due to Legionella cannot be ruled out since other serogroups and species may cause disease, antigen may not be present in urine in early infection, and the level of antigen present in the urine may be below the detection limit of the test. 02/08/18 10:00 Nasal Wash Influenza Types A,B Antigen - Final Negative for FLU A and B antigen Infection due to influenza A or B cannot be ruled out since the antigen present in the sample may be below the detection limit of the test. - Imaging Impressions Chest CTA 02/08/18 10:04 CONCLUSION: 1. No evidence of pulmonary embolism. 2. Mild increased reticulonodular initial infiltrates are noted bilaterally ( left slightly worse than right) consistent with possible viral pneumonitis. Clinical correlation is recommended. 3. Degenerative changes and scoliosis of the thoracic spine. Assessment and Plan - Plan This patient is a 42-year-old obese female with an extensive tobacco smoking history. She states that she has been smoking tobacco since the age of 16, one pack per day. She presented to our emergency department yesterday with complaints of shortness of breath, and a cough. In the emergency department the patient was found to be febrile, tachycardic, and hypoxic. 1. Sepsis secondary to community-acquired pneumonia 2. Acute hypoxic hypercapnic respiratory failure possibly secondary to COPD exacerbation. As mentioned above the patient presented with fever, tachycardia, and a cough. Labs showed elevated WBC count. A CTA of the chest was ordered to evaluate for possible pulmonary embolus. No pulmonary embolus was seen however the patient did have a left-sided infiltrate. She was admitted and started on IV fluids and IV antibiotics. She is also on breathing treatments as well as IV Solu- Medrol. The pulmonary team was consulted to evaluate the patient. Pulmonary function tests were ordered. We will continue to follow-up with recommendations from pulmonology. All cultures will also be followed up including sputum culture and blood cultures. She is currently on 2 L of supplemental oxygen. We will continue supplemental oxygen as needed. Heparin for DVT prophylaxis.
[2018-02-09 16:32] LABS: Hemoglobin A1c 5.4 % (4.3-6.0)
[2018-02-09] MEDS: Heparin - SQ 10,000 UNITS/ML Vial SQ SCH (20:12)
[2018-02-10] MEDS: MethylPREDNISolone Sod Succinate Inj 40 MG/ML Vial IV.PUSH SCH ×2 (03:21→08:34)
[2018-02-10] MEDS: Azithromycin 250 MG Tablet PO SCH (08:33)
[2018-02-10] MEDS: Senna/Docusate Sodium 8.6/50 MG Tablet PO SCH ×2 (08:35→21:57)
[2018-02-10] MEDS: Heparin - SQ 10,000 UNITS/ML Vial SQ SCH ×2 (08:43→21:57)
--- NOTE | 2018-02-10 13:05 | P.PNPL ---
Subjective Interval history: Patient is lying in bed in NAD. Afebrile. Physical Exam Vital signs: Vital Signs 02/09/18 16:00 02/09/18 16:16 02/09/18 19:00 Temperature 98.1 F Pulse Rate 99 H 82 79 Respiratory Rate 20 16 Blood Pressure 168/87 H Pulse Oximetry 99 02/09/18 20:00 02/09/18 20:22 02/09/18 23:58 Temperature 97.9 F 97.8 F Pulse Rate 91 H 87 99 H Respiratory Rate 18 17 18 Blood Pressure 146/87 H 138/78 Pulse Oximetry 93 L 95 95 02/10/18 00:00 02/10/18 04:00 02/10/18 04:13 Temperature 98.2 F Pulse Rate 89 81 78 Respiratory Rate 18 19 Blood Pressure 134/80 Pulse Oximetry 95 95 02/10/18 07:32 02/10/18 08:19 02/10/18 08:20 Temperature 98.3 F Pulse Rate 82 80 Respiratory Rate 20 15 Blood Pressure 172/85 H Pulse Oximetry 95 95 02/10/18 09:00 02/10/18 11:30 02/10/18 11:32 Temperature 96.5 F L Pulse Rate 79 85 Respiratory Rate 16 Blood Pressure 162/96 H Pulse Oximetry 94 L 94 L Intake & Output 02/09/18 02/10/18 02/10/18 18:59 06:59 18:59 Intake Total 100 / 100 480 / 480 100 / 100 Output Total 1000 / 1000 Balance -900 / -900 480 / 480 100 / 100 Weight 94.6 kg Intake: IV 100 / 100 100 / 100 Rocephin Inj 1,000 MG In NS Inj 100 / 100 100 / 100 100 ML @ 200 mls/hr IV.SIG Q24H [facility] Rx#:[id number] Oral 480 / 480 Output: Urine 1000 / 1000 Other: # Voids 2 Date of Last Bowel Movement 02/09/18 # Bowel Movements 1 - Constitutional no acute distress - Routine HEENT Exam Head: Present: normocephalic, atraumatic Eye: Present: EOMI, PERRL, normal accommodation ENT: Present: mucous membranes moist - Routine Neck Exam Present: supple, full ROM, trachea midline - Routine Respiratory Exam Present: CTA bilaterally - Routine Cardiovascular Exam Present: RRR, S1, S2 - Routine Abdominal Exam Present: soft, normoactive bowel sounds - Routine Extremities Exam Present: full ROM - Routine Skin Exam Present: intact, dry - Routine Neurological Exam Present: alert, oriented X3, CN II-XII intact - Routine Psychiatric Exam Present: normal affect Assessment and Plan - Plan 1)Resp Insuff 2)Pneumonia 3)Active tobacco use 4)Obesity 5)Leukocytosis..trending down Plan Continue with oxygen keep sats >92% Bronchodilators, decrease solumederol 60mg Q12 BIPAP PRN Continue with abx (Rocephin, Azithromycin) monitor for signs of infections ( fever, WBC) Strep pneumonia, Legionella urinary Ag, Influenza screening all negative GI/DVT prophylaxis- on heparin SQ Continue treatment plan
--- NOTE | 2018-02-10 17:17 | P.PNIM ---
Physical Exam Vital signs: Vital Signs 02/09/18 19:00 02/09/18 20:00 02/09/18 20:22 Temperature 97.9 F Pulse Rate 79 91 H 87 Respiratory Rate 18 17 Blood Pressure 146/87 H Pulse Oximetry 93 L 95 02/09/18 23:58 02/10/18 00:00 02/10/18 04:00 Temperature 97.8 F 98.2 F Pulse Rate 99 H 89 81 Respiratory Rate 18 18 Blood Pressure 138/78 134/80 Pulse Oximetry 95 95 02/10/18 04:13 02/10/18 07:32 02/10/18 08:19 Temperature 98.3 F Pulse Rate 78 82 80 Respiratory Rate 19 20 15 Blood Pressure 172/85 H Pulse Oximetry 95 95 02/10/18 08:20 02/10/18 09:00 02/10/18 11:30 Temperature 96.5 F L Pulse Rate 79 85 Respiratory Rate 16 Blood Pressure 162/96 H Pulse Oximetry 95 94 L 02/10/18 11:32 02/10/18 12:00 02/10/18 16:00 Temperature 97.7 F Pulse Rate 77 106 H Respiratory Rate 21 Blood Pressure 146/74 H Pulse Oximetry 94 L 99 02/10/18 16:19 Temperature Pulse Rate 85 Respiratory Rate 21 Blood Pressure Pulse Oximetry Intake & Output 02/09/18 02/10/18 02/10/18 18:59 06:59 18:59 Intake Total 100 / 100 480 / 480 100 / 100 Output Total 1000 / 1000 Balance -900 / -900 480 / 480 100 / 100 Weight 94.6 kg Intake: IV 100 / 100 100 / 100 Rocephin Inj 1,000 MG In NS Inj 100 / 100 100 / 100 100 ML @ 200 mls/hr IV.SIG Q24H [facility] Rx#:[id number] Oral 480 / 480 Output: Urine 1000 / 1000 Other: # Voids 2 Date of Last Bowel Movement 02/09/18 # Bowel Movements 1 Narrative: General patient in no acute distress HEENT extraocular movements are intact, the patient's cheeks appeared flushed, she states that prior to me walking into the room she was coughing which is likely why the patient's face appears flushed. Cardiovascular S1-S2 audible, RRR, no murmurs rubs or gallops Respiratory bilateral wheezing on auscultation. Abdomen soft, nontender, nondistended, normal bowel sounds Extremities no edema 2+ distal pulses in bilateral upper and lower extremities Neuro cranial nerves II through XII intact Results - Labs CBC & Chem 7: 02/09/18 04:50 02/09/18 04:50 Microbiology 02/08/18 09:10 Blood - Peripheral Aerobic Blood Culture - Preliminary No growth in 2 days 02/08/18 09:10 Blood - Peripheral Anaerobic Blood Culture - Preliminary No growth in 2 days 02/08/18 09:25 Blood - Peripheral Aerobic Blood Culture - Preliminary No growth in 2 days 02/08/18 09:25 Blood - Peripheral Anaerobic Blood Culture - Preliminary No growth in 2 days 02/08/18 09:06 Clean Catch Urine Urine Culture - Final 10-50,000 cfu/mL mixed gram positive kieran (probable contaminants) 02/08/18 10:00 Sputum - Expectorated Sputum Gram Stain - Final 02/08/18 10:00 Sputum - Expectorated Sputum Sputum Culture - Preliminary Assessment and Plan - Plan This patient is a 42-year-old obese female with an extensive tobacco smoking history. She states that she has been smoking tobacco since the age of 16, one pack per day. She presented to our emergency department yesterday with complaints of shortness of breath, and a cough. In the emergency department the patient was found to be febrile, tachycardic, and hypoxic. 1. Sepsis secondary to community-acquired pneumonia 2. Acute hypoxic hypercapnic respiratory failure possibly secondary to COPD exacerbation. The patient still has significant amount of wheezing on auscultation bilaterally. Continue supplemental oxygen, continue breathing treatments as needed. She will be continued on IV Solu-Medrol as well as IV antibiotics. Pulmonary is co-following. I will continue to follow up with requisitions from pulmonary. Also follow-up the official read from the pulmonary function tests which were done. Heparin for DVT prophylaxis.
[2018-02-10] MEDS: MethylPREDNISolone Sod Succinate Inj 125 MG/2 ML Vial IV.PUSH SCH (21:56)
[2018-02-11 05:42] LABS: Anion Gap 7 meq/L (5-15); Blood Urea Nitrogen 14 mg/dL (7-18); Calcium 8.6 mg/dL (8.5-10.1); Carbon Dioxide 31.8 meq/L (21.0-32.0); Chloride 97 meq/L (98-107); Glomerular Filtration Rate Greater Than 89 mL/min (>89); Glucose,Random 116 mg/dL (74-106); Magnesium 2.3 mg/dL (1.5-2.5); Potassium 4.7 meq/L (3.5-5.1); Sodium 136 meq/L (136-145)
[2018-02-11] MEDS: Azithromycin 250 MG Tablet PO SCH (09:23)
[2018-02-11] MEDS: Heparin - SQ 10,000 UNITS/ML Vial SQ SCH ×2 (09:23→20:48)
[2018-02-11] MEDS: MethylPREDNISolone Sod Succinate Inj 125 MG/2 ML Vial IV.PUSH SCH ×2 (09:24→20:47)
[2018-02-11] MEDS: Senna/Docusate Sodium 8.6/50 MG Tablet PO SCH ×2 (09:25→20:47)
--- NOTE | 2018-02-11 11:16 | P.PNPL ---
Subjective Interval history: Patient is sitting up in chair in NAD. Afebrile. Physical Exam Vital signs: Vital Signs 02/10/18 11:30 02/10/18 11:32 02/10/18 12:00 Temperature 96.5 F L Pulse Rate 85 77 Respiratory Rate 16 Blood Pressure 162/96 H Pulse Oximetry 94 L 94 L 02/10/18 16:00 02/10/18 16:19 02/10/18 19:07 Temperature 97.7 F Pulse Rate 106 H 85 85 Respiratory Rate 21 21 21 Blood Pressure 146/74 H Pulse Oximetry 99 02/10/18 20:00 02/11/18 00:00 02/11/18 03:47 Temperature 98.8 F 97.9 F Pulse Rate 91 H 80 67 Respiratory Rate 18 18 15 Blood Pressure 149/58 H 162/82 H Pulse Oximetry 93 L 95 02/11/18 04:00 02/11/18 08:00 02/11/18 09:22 Temperature 98.1 F 98 F Pulse Rate 68 81 82 Respiratory Rate 18 18 16 Blood Pressure 155/95 H 162/93 H Pulse Oximetry 97 96 95 Intake & Output 02/10/18 02/11/18 02/11/18 18:59 06:59 18:59 Intake Total 1060 / 1060 240 / 240 100 / 100 Output Total 900 / 900 Balance 1060 / 1060 -660 / -660 100 / 100 Weight 93.1 kg Intake: IV 100 / 100 100 / 100 Rocephin Inj 1,000 MG In NS Inj 100 / 100 100 / 100 100 ML @ 200 mls/hr IV.SIG Q24H [facility] Rx#:[id number] Oral 960 / 960 240 / 240 Output: Urine 900 / 900 Other: # Voids 4 Date of Last Bowel Movement 02/09/18 # Bowel Movements 0 - Constitutional no acute distress - Routine HEENT Exam Head: Present: normocephalic, atraumatic Eye: Present: EOMI, PERRL, normal accommodation, conjunctivae pink ENT: Present: mucous membranes moist - Routine Neck Exam Present: supple, full ROM, trachea midline - Routine Respiratory Exam Present: rhonchi, wheezes - Routine Cardiovascular Exam Present: RRR, S1, S2 - Routine Abdominal Exam Present: soft, normoactive bowel sounds - Routine Extremities Exam Present: full ROM, pulses intact - Routine Neurological Exam Present: alert, oriented X3, CN II-XII intact - Routine Psychiatric Exam Present: normal affect Assessment and Plan - Plan 1)Resp Insuff 2)Pneumonia 3)Active tobacco use 4)Obesity 5)Leukocytosis..trending down Plan Continue with oxygen keep sats >92% Bronchodilators( DuoNeb, add Symbicort) solumederol 60mg Q12 BIPAP PRN, check CXR Add Mucinex 600mg Q12 Continue with abx (Rocephin, Azithromycin) monitor for signs of infections ( fever, WBC) Strep pneumonia, Legionella urinary Ag, Influenza screening all negative GI/DVT prophylaxis- on heparin SQ Continue treatment plan
--- NOTE | 2018-02-11 12:04 | XR ---
EXAM DATE: 02/11/2018 12:01 PM EDT AGE/SEX: 42 years / Female INDICATIONS: Shortness of breath. CLINICAL DATA: This is the patient's subsequent encounter. Patient reports that signs and symptoms h ave been present for 3 days and indicates a pain score of 0/10. MEDICAL/SURGICAL HISTORY: . Pneumonia. None. COMPARISON: [facility] [place], CHEST 1V SINGLE AP, 02/08/2018. . FINDINGS: There is minimal elevation of the left hemidiaphragm with parenchymal changes left base. Cardiac silh ouette is normal size. There is mild prominence of interstitium. There is no pneumothorax. CONCLUSION: Mild prominence and associated with a normal cardiac silhouette. New elevation of the left hemidiaphragm with parental changes in the left base. Electronically signed by: Rebel Duke MD 02/11/2018 12:03 PM EDT
[2018-02-11] MEDS: guaiFENesin 600 MG ER Tablet PO SCH ×2 (12:54→20:48)
[2018-02-11] MEDS: Budesonide-Formoterol 160/4.5 MCG 6 GM Inhaler INH SCH ×2 (14:13→20:49)
--- NOTE | 2018-02-11 14:56 | P.PNIM ---
Subjective Interval history: Patient has a cough. At rest she does not have any shortness of breath. She does not have any other complaints. Physical Exam Vital signs: Vital Signs 02/10/18 16:00 02/10/18 16:19 02/10/18 19:07 Temperature 97.7 F Pulse Rate 106 H 85 85 Respiratory Rate 21 21 21 Blood Pressure 146/74 H Pulse Oximetry 99 02/10/18 20:00 02/11/18 00:00 02/11/18 03:47 Temperature 98.8 F 97.9 F Pulse Rate 91 H 80 67 Respiratory Rate 18 18 15 Blood Pressure 149/58 H 162/82 H Pulse Oximetry 93 L 95 02/11/18 04:00 02/11/18 08:00 02/11/18 09:22 Temperature 98.1 F 98 F Pulse Rate 68 81 82 Respiratory Rate 18 18 16 Blood Pressure 155/95 H 162/93 H Pulse Oximetry 97 96 95 02/11/18 12:00 Temperature 98.1 F Pulse Rate 94 H Respiratory Rate 18 Blood Pressure 150/72 H Pulse Oximetry 96 Intake & Output 02/10/18 02/11/18 02/11/18 18:59 06:59 18:59 Intake Total 1060 / 1060 240 / 240 100 / 100 Output Total 900 / 900 Balance 1060 / 1060 -660 / -660 100 / 100 Weight 93.1 kg Intake: IV 100 / 100 100 / 100 Rocephin Inj 1,000 MG In NS Inj 100 / 100 100 / 100 100 ML @ 200 mls/hr IV.SIG Q24H [facility] Rx#:[id number] Oral 960 / 960 240 / 240 Output: Urine 900 / 900 Other: # Voids 4 Date of Last Bowel Movement 02/09/18 # Bowel Movements 0 Narrative: General patient in no acute distress HEENT face appears flushed, no change from yesterday. Cardiovascular S1-S2 audible, RRR, no murmurs rubs or gallops Respiratory wheezing auscultated bilaterally in all lung pa. Abdomen soft, nontender, nondistended, normal bowel sounds Extremities no edema 2+ distal pulses in bilateral upper and lower extremities Neuro cranial nerves II through XII intact Results - Labs CBC & Chem 7: 02/09/18 04:50 02/11/18 04:36 Laboratory Results - last 24 hr 02/11/18 04:36 Sodium 136 Potassium 4.7 Chloride 97 L Carbon Dioxide 31.8 Anion Gap 7 BUN 14 Creatinine 0.55 Estimated GFR Greater than 89 Random Glucose 116 H Calcium 8.6 Magnesium 2.3 Microbiology 02/08/18 10:00 Sputum - Expectorated Sputum Gram Stain - Final 02/08/18 10:00 Sputum - Expectorated Sputum Sputum Culture - Final Haemophilus influenzae 02/08/18 09:10 Blood - Peripheral Aerobic Blood Culture - Preliminary No growth in 3 days 02/08/18 09:10 Blood - Peripheral Anaerobic Blood Culture - Preliminary No growth in 3 days 02/08/18 09:25 Blood - Peripheral Aerobic Blood Culture - Preliminary No growth in 3 days 02/08/18 09:25 Blood - Peripheral Anaerobic Blood Culture - Preliminary No growth in 3 days - Imaging Impressions Chest X-Ray 02/11/18 11:15 CONCLUSION: Mild prominence and associated with a normal cardiac silhouette. New elevation of the left hemidiaphragm with parental changes in the left base. Assessment and Plan - Plan This patient is a 42-year-old obese female with an extensive tobacco smoking history. She states that she has been smoking tobacco since the age of 16, one pack per day. She presented to our emergency department yesterday with complaints of shortness of breath, and a cough. In the emergency department the patient was found to be febrile, tachycardic, and hypoxic. 1. Sepsis secondary to community-acquired pneumonia 2. Acute hypoxic hypercapnic respiratory failure possibly secondary to COPD exacerbation. The patient still has wheezing bilaterally on auscultation. She has remained afebrile. WBC count showed a downtrend. We will continue supplemental oxygen. Continue IV antibiotics. Sputum cultures growing H influenza which is sensitive to the current treatment. Blood cultures are negative. Continue IV steroids. Follow-up with pulmonary for further recommendations. Follow-up official read of pulmonary function test. Patient likely has obstructive lung disease from extensive tobacco smoking history. Heparin for DVT prophylaxis
[2018-02-12] MEDS: Azithromycin 250 MG Tablet PO SCH (08:11)
[2018-02-12] MEDS: Heparin - SQ 10,000 UNITS/ML Vial SQ SCH ×2 (08:11→20:22)
[2018-02-12] MEDS: guaiFENesin 600 MG ER Tablet PO SCH ×2 (08:11→20:21)
[2018-02-12] MEDS: MethylPREDNISolone Sod Succinate Inj 125 MG/2 ML Vial IV.PUSH SCH ×2 (08:12→20:22)
[2018-02-12] MEDS: Senna/Docusate Sodium 8.6/50 MG Tablet PO SCH ×2 (08:12→20:21)
[2018-02-12] MEDS: Budesonide-Formoterol 160/4.5 MCG 6 GM Inhaler INH SCH ×2 (08:13→20:26)
--- NOTE | 2018-02-12 11:00 | P.PNPL ---
Subjective Interval history: No events overnight. Sitting in chair in NAD. Afebrile. Physical Exam Vital signs: Vital Signs 02/11/18 12:00 02/11/18 15:47 02/11/18 16:00 Temperature 98.1 F 98.4 F Pulse Rate 94 H 84 79 Respiratory Rate 18 16 18 Blood Pressure 150/72 H 165/85 H Pulse Oximetry 96 95 02/11/18 20:00 02/11/18 21:16 02/12/18 00:00 Temperature 98.9 F 97.9 F Pulse Rate 87 92 H 87 Respiratory Rate 18 16 18 Blood Pressure 167/93 H 158/93 H Pulse Oximetry 96 95 02/12/18 04:00 02/12/18 04:57 02/12/18 08:00 Temperature 97.3 F L 98 F Pulse Rate 66 75 65 Respiratory Rate 20 16 22 Blood Pressure 129/89 156/89 H Pulse Oximetry 97 97 02/12/18 09:47 Temperature Pulse Rate 88 Respiratory Rate 16 Blood Pressure Pulse Oximetry 96 Intake & Output 02/11/18 02/12/18 02/12/18 18:59 06:59 18:59 Intake Total 660 / 660 Balance 660 / 660 Weight 92.9 kg Intake: IV 100 / 100 Rocephin Inj 1,000 MG In NS Inj 100 / 100 100 ML @ 200 mls/hr IV.SIG Q24H [facility] Rx#:[id number] Oral 560 / 560 Other: # Voids 6 Date of Last Bowel Movement 02/09/18 02/09/18 # Bowel Movements 1 - Constitutional no acute distress - Routine HEENT Exam Head: Present: normocephalic, atraumatic Eye: Present: EOMI, PERRL, normal accommodation, conjunctivae pink ENT: Present: mucous membranes moist - Routine Neck Exam Present: supple, full ROM, trachea midline - Routine Respiratory Exam Present: CTA bilaterally - Routine Cardiovascular Exam Present: RRR, S1, S2 - Routine Abdominal Exam Present: soft, normoactive bowel sounds - Routine Extremities Exam Present: full ROM, pulses intact - Routine Skin Exam Present: intact, dry - Routine Neurological Exam Present: alert, oriented X3, CN II-XII intact - Routine Psychiatric Exam Present: normal affect Assessment and Plan - Plan 1)Resp Insuff 2)Pneumonia 3)Active tobacco use 4)Obesity 5)Leukocytosis..trending down Plan Continue with oxygen keep sats >92% Bronchodilators( DuoNeb, add Symbicort) solumederol 60mg Q12 BIPAP PRN, Mucinex 600mg Q12 Continue with abx (Rocephin, Azithromycin) monitor for signs of infections ( fever, WBC) Change to PO Levaquin Strep pneumonia, Legionella urinary Ag, Influenza screening all negative 02/08 Sputum cx: Haemophilus Influenza GI/DVT prophylaxis- on heparin SQ Possible discharge in next 1-2 days
--- NOTE | 2018-02-12 15:56 | P.PNIM ---
Subjective Interval history: Patient is sitting upright in bed. She complains of still having a cough. She says she feels better than when she did on the day of admission. Physical Exam Vital signs: Vital Signs 02/11/18 16:00 02/11/18 20:00 02/11/18 21:16 Temperature 98.4 F 98.9 F Pulse Rate 79 87 92 H Respiratory Rate 18 18 16 Blood Pressure 165/85 H 167/93 H Pulse Oximetry 95 96 02/12/18 00:00 02/12/18 04:00 02/12/18 04:57 Temperature 97.9 F 97.3 F L Pulse Rate 87 66 75 Respiratory Rate 18 20 16 Blood Pressure 158/93 H 129/89 Pulse Oximetry 95 97 02/12/18 08:00 02/12/18 09:47 02/12/18 12:00 Temperature 98 F Pulse Rate 65 88 82 Respiratory Rate 22 16 Blood Pressure 156/89 H Pulse Oximetry 97 96 Intake & Output 02/11/18 02/12/18 02/12/18 18:59 06:59 18:59 Intake Total 660 / 660 100 / 100 Balance 660 / 660 100 / 100 Weight 92.9 kg Intake: IV 100 / 100 100 / 100 Rocephin Inj 1,000 MG In NS Inj 100 / 100 100 / 100 100 ML @ 200 mls/hr IV.SIG Q24H [facility] Rx#:[id number] Oral 560 / 560 Other: # Voids 6 Date of Last Bowel Movement 02/09/18 02/09/18 # Bowel Movements 1 Narrative: General patient in no acute distress HEENT face appears flushed, no change from yesterday. Cardiovascular S1-S2 audible, RRR, no murmurs rubs or gallops Respiratory wheezing auscultated bilaterally in all lung pa, slightly improved from yesterday. Abdomen soft, nontender, nondistended, normal bowel sounds Extremities no edema 2+ distal pulses in bilateral upper and lower extremities Neuro cranial nerves II through XII intact Results - Labs CBC & Chem 7: 02/09/18 04:50 02/11/18 04:36 Microbiology 02/08/18 09:10 Blood - Peripheral Aerobic Blood Culture - Preliminary No growth in 4 days 02/08/18 09:10 Blood - Peripheral Anaerobic Blood Culture - Preliminary No growth in 4 days 02/08/18 09:25 Blood - Peripheral Aerobic Blood Culture - Preliminary No growth in 4 days 02/08/18 09:25 Blood - Peripheral Anaerobic Blood Culture - Preliminary No growth in 4 days 02/08/18 10:00 Sputum - Expectorated Sputum Gram Stain - Final 02/08/18 10:00 Sputum - Expectorated Sputum Sputum Culture - Final Haemophilus influenzae Assessment and Plan - Plan This patient is a 42-year-old obese female with an extensive tobacco smoking history. She states that she has been smoking tobacco since the age of 16, one pack per day. She presented to our emergency department yesterday with complaints of shortness of breath, and a cough. In the emergency department the patient was found to be febrile, tachycardic, and hypoxic. 1. Sepsis secondary to community-acquired pneumonia 2. Acute hypoxic hypercapnic respiratory failure possibly secondary to COPD exacerbation. The patient still has wheezing bilaterally on auscultation. She has remained afebrile. WBC count showed a downtrend. Sputum culture is growing H influenza. We will continue supplemental oxygen. IV antibiotics have been stopped and she has been switched to p.o. Levaquin as per pulmonary recommendations. Blood cultures are negative. Continue IV steroids. Continue Symbicort. Follow-up with pulmonary for further recommendations. Patient likely has obstructive lung disease from extensive tobacco smoking history. Heparin for DVT prophylaxis.
[2018-02-12] MEDS ORDERED: Budesonide-Formoterol 80/4.5 MCG 6.9 GM Inhaler INH SCH (21:00)
[2018-02-13] MEDS: MethylPREDNISolone Sod Succinate Inj 125 MG/2 ML Vial IV.PUSH SCH (08:48)
[2018-02-13] MEDS: guaiFENesin 600 MG ER Tablet PO SCH (08:48)
[2018-02-13] MEDS: Heparin - SQ 10,000 UNITS/ML Vial SQ SCH (08:49)
[2018-02-13] MEDS: Budesonide-Formoterol 160/4.5 MCG 6 GM Inhaler INH SCH (08:49)
[2018-02-13] MEDS: Senna/Docusate Sodium 8.6/50 MG Tablet PO SCH (08:49)
[2018-02-13] MEDS ORDERED: levoFLOXacin 750 MG Tablet PO SCH (09:00)
[2018-02-13 09:14] VITALS: RESP 18
[2018-02-13 12:27] VITALS: BP 165/81; PULSE 85; TEMP 98.2; O2SAT 95
--- NOTE | 2018-02-13 14:11 | P.PN ---
Subjective Interval history: ALERT NO SOB Physical Exam Vital signs: Vital Signs 02/12/18 16:00 02/12/18 20:00 02/12/18 23:47 Temperature 98.8 F 98.1 F 96.7 F L Pulse Rate 78 93 H 88 Respiratory Rate 20 20 20 Blood Pressure 155/78 H 166/103 H 145/76 H Pulse Oximetry 94 L 93 L 92 L 02/13/18 00:00 02/13/18 04:00 02/13/18 08:00 Temperature 96.2 F L 98.4 F Pulse Rate 74 73 79 Respiratory Rate 20 18 Blood Pressure 161/77 H 162/86 H Pulse Oximetry 94 L 94 L 02/13/18 11:40 02/13/18 12:00 Temperature 98.2 F Pulse Rate 85 Respiratory Rate 18 Blood Pressure 165/81 H Pulse Oximetry 96 95 Intake & Output 02/12/18 02/13/18 02/13/18 18:59 06:59 18:59 Intake Total 660 / 660 Balance 660 / 660 Weight 93.2 kg Intake: IV 100 / 100 Rocephin Inj 1,000 MG In NS Inj 100 / 100 100 ML @ 200 mls/hr IV.SIG Q24H [facility] Rx#:[id number] Oral 560 / 560 Other: # Voids 6 Date of Last Bowel Movement 02/09/18 # Bowel Movements 1 Narrative: General patient in no acute distress HEENT face appears flushed, no change from yesterday. Cardiovascular S1-S2 audible, RRR, no murmurs rubs or gallops Respiratory wheezing auscultated bilaterally in all lung pa, slightly improved from yesterday. Abdomen soft, nontender, nondistended, normal bowel sounds Extremities no edema 2+ distal pulses in bilateral upper and lower extremities Neuro cranial nerves II through XII intact Results - Labs CBC & Chem 7: 02/09/18 04:50 02/11/18 04:36 Microbiology 02/08/18 09:10 Blood - Peripheral Aerobic Blood Culture - Final No growth in 5 days 02/08/18 09:10 Blood - Peripheral Anaerobic Blood Culture - Final No growth in 5 days 02/08/18 09:25 Blood - Peripheral Aerobic Blood Culture - Final No growth in 5 days 02/08/18 09:25 Blood - Peripheral Anaerobic Blood Culture - Final No growth in 5 days Assessment and Plan - Plan ASTHMA IMPROVED PLAN OK FOR D/C OFFICE 2 WEEKS
--- NOTE | 2018-02-13 19:15 | P.DS ---
Date of admission: 02/08/18 13:02 Primary care physician: No Primary Care Physician Brief History from admission: HPI from the admitting physician: 42-year-old female with a [id number] smoking history, as well as seasonal allergies who presents with a 2 day history of cough productive of white sputum , subjective fevers and chills, sinus congestion. She denies any chest pain or shortness of breath. Patient reports being evicted from her apartment 1 week ago, and thinks that environmental allergies are exacerbating her condition. Patient says her shortness of breath has improved with nebulizations in the ER. Patient update on day of discharge: Patient reports she is feeling much better. On room air today. DS: Diagnosis - Discharge Diagnosis (1) Asthma Status: Acute (2) COPD (chronic obstructive pulmonary disease) Status: Acute (3) Hypoxemia Status: Acute (4) Pneumonia Status: Acute DS: Medications - Discharge Medications Prescriptions: budesonide-formoterol [Symbicort] 2 puff INH BID #1 inh levofloxacin 750 mg PO DAILY #3 tab prednisone 20 mg PO BID #8 tab DS: Summary Hospital Course: 42-year-old obese female with an extensive tobacco smoking history. She states that she has been smoking tobacco since the age of 16, one pack per day. She presented to our emergency department with complaints of shortness of breath, and a cough. In the emergency department the patient was found to be febrile, tachycardic, and hypoxic. 1. Sepsis secondary to community-acquired pneumonia 2. Acute hypoxic hypercapnic respiratory failure possibly secondary to COPD exacerbation. The aptient was admitted and treated with antibiotics, breathing treatments and steroids. She was followed by pulmonology. Sputum culture is grew H influenza. Patient's condition improved. She is discharged on Levaquin to complete the course of treatment as well as steroids and breathing treatments. - Time Spent with Patient Total time spent providing and/or coordinating discharge services: Less than 30 minutes - Quality: VTE Deep Vein Thrombosis/Pulmonary Embolism Present on Admission: No Exam Vital signs: Vital Signs 02/12/18 20:00 02/12/18 23:47 02/13/18 00:00 Temperature 98.1 F 96.7 F L Pulse Rate 93 H 88 74 Respiratory Rate 20 20 Blood Pressure 166/103 H 145/76 H Pulse Oximetry 93 L 92 L 02/13/18 04:00 02/13/18 08:00 02/13/18 11:40 Temperature 96.2 F L 98.4 F Pulse Rate 73 79 Respiratory Rate 20 18 Blood Pressure 161/77 H 162/86 H Pulse Oximetry 94 L 94 L 96 02/13/18 12:00 Temperature 98.2 F Pulse Rate 85 Respiratory Rate 18 Blood Pressure 165/81 H Pulse Oximetry 95 Intake & Output 02/13/18 02/13/18 02/14/18 06:59 18:59 06:59 Weight 93.2 kg Narrative: GENERAL: No acute distress. SKIN: Warm and dry. HEAD: Normocephalic. EYES: No scleral icterus. No injection or drainage. NECK: Supple, trachea midline. No JVD or lymphadenopathy. CARDIOVASCULAR: Regular rate and rhythm without murmurs, gallops, or rubs. RESPIRATORY: Breath sounds equal bilaterally. No accessory muscle use. GASTROINTESTINAL: Abdomen soft, non-tender, nondistended. MUSCULOSKELETAL: No cyanosis, or edema. BACK: Nontender without obvious deformity. No CVA tenderness. Results Procedures completed during hospitalization: None - Impressions ITS Impressions Chest CTA 02/08/18 10:04 CONCLUSION: 1. No evidence of pulmonary embolism. 2. Mild increased reticulonodular initial infiltrates are noted bilaterally ( left slightly worse than right) consistent with possible viral pneumonitis. Clinical correlation is recommended. 3. Degenerative changes and scoliosis of the thoracic spine. Chest X-Ray 02/11/18 11:15 CONCLUSION: Mild prominence and associated with a normal cardiac silhouette. New elevation of the left hemidiaphragm with parental changes in the left base. Discharge Plan - Discharge Disposition Patient Disposition: 01 Discharge Home - Discharge Condition Condition: Stable - Discharge Order Discharge Orders: Discharge Order (Routine); Ordered 02/13/18 Ordered By: Raeann Haskins - Physicians Team Primary Care Provider: Primary Care Physici,No Attending Provider: Raeann Haskins Other Providers: Jeffery Gil MD
== END 2018-02-13 14:57 | disposition home or self-care (01) ==
LOC: NEPC 08:49 → NEDA 13:02 → N04 18:35
PROVIDERS: ADMIT Family Medicine; ATTEND Family Medicine